=== PATIENT | male | born 1985 | race African-American/Black ===

== ENCOUNTER 2021-04-06 07:57 | Outpatient (CLI) | payer OTHER | END 2021-04-06 23:59 | disposition home or self-care (01) | LOC: CFH 07:57 | PROVIDERS: ATTEND Podiatrist Primary Podiatric Medicine | DX: S92.402A Displaced unspecified fracture of left great toe, initial encounter for closed fracture (principal); S92.322A Displaced fracture of second metatarsal bone, left foot, initial encounter for closed fracture; X58.XXXA Exposure to other specified factors, initial encounter; Y93.89 Activity, other specified; Y92.89 Other specified places as the place of occurrence of the external cause; Y99.8 Other external cause status ==